=== PATIENT | female | born 1940 | race Caucasian/White ===

== ENCOUNTER 2024-03-11 22:41 | Inpatient (IN) | payer OTHER, BC ==
[2024-03-11 22:51] VITALS: BMI 28.3
[2024-03-12 01:19] LABS: HEMATOCRIT 35.7 % (32.4-45.2); MCH 32.1 pg (25.7-33.7); MCHC 33.6 g/dl (32.0-36.0); MEAN CELL VOLUME 95.7 fl (80-96); MEAN PLT VOLUME 8.4 fl (7.5-11.1); PLATELET COUNT 319 10^3/uL (134-434); RBC 3.73 M/mm3 (3.60-5.2); RDW 13.1 % (11.6-15.6); WHITE BLOOD COUNT 14.6 K/mm3 (4.0-10.0)
[2024-03-12 01:36] LABS: POTASSIUM 5.3 mmol/L (3.5-5.1)
[2024-03-12 01:37] LABS: CALCIUM 9.8 mg/dL (8.5-10.1)
[2024-03-12 01:38] LABS: ALBUMIN 3.7 g/dl (3.4-5.0); BLOOD UREA NITROGEN 39.9 mg/dL (7-18); MAGNESIUM 2.1 mg/dL (1.8-2.4)
[2024-03-12 01:40] LABS: INR 0.96 (0.83-1.09)
[2024-03-12 01:41] LABS: CREATININE 1.6 mg/dL (0.55-1.3)
[2024-03-12 01:43] LABS: ACTIVATED PTT 30.6 SECONDS (25.2-36.5); BILIRUBIN,TOTAL 0.9 mg/dL (0.2-1); TOT PROT 7.1 g/dl (6.4-8.2)
[2024-03-12] MEDS: SODIUM CHLORIDE 0.9% 500 ML INFUS.BAG IV ONE (03:20)
[2024-03-12] MEDS ORDERED: ACETAMINOPHEN 325 MG TABLET (FP) PO PRN (03:56)
[2024-03-12 04:35] LABS: PHOSPHOROUS 4.8 mg/dL (2.5-4.9)
[2024-03-12] MEDS: SODIUM CHLORIDE 0.45% 1,000 ML IV SCH (05:48)
[2024-03-12 06:01] LABS: URINE APPEARANCE CLEAR; URINE BILIRUBIN NEGATIVE (NEGATIVE); URINE COLOR YELLOW; URINE GLUCOSE (UA) NEGATIVE (NEGATIVE); URINE KETONE NEGATIVE (NEGATIVE); URINE LEUK ESTERASE NEGATIVE (NEGATIVE); URINE NITRITE NEGATIVE (NEGATIVE); URINE PROTEIN NEGATIVE (NEGATIVE); URINE UROBILINOGEN 0.2 mg/dL (0.2-1.0)
[2024-03-12 09:09] LABS: ANISOCYTOSIS 0; HELMET CELLS 0; HOWELL-JOLLY BODIES 0; MACROCYTOSIS 0; OVALOCYTE 0; ROULEAU 0; SICKELED CELLS 0; TARGET CELLS 0; TEAR DROP CELLS 0; TOXIC GRANULATION 0
[2024-03-12 09:30] LABS: BASO % 0.7 % (0-2.0); EOS % 0.3 % (0-4.5); HEMATOCRIT 33.8 % (32.4-45.2); HEMOGLOBIN 11.5 GM/dL (10.7-15.3); LYMPH % 7.6 % (8-40); MCH 32.6 pg (25.7-33.7); MCHC 34.1 g/dl (32.0-36.0); MEAN CELL VOLUME 95.7 fl (80-96); MEAN PLT VOLUME 8.1 fl (7.5-11.1); NEUT % 85.4 % (42.8-82.8); PLATELET COUNT 295 10^3/uL (134-434); RBC 3.53 M/mm3 (3.60-5.2); RDW 13.2 % (11.6-15.6); WHITE BLOOD COUNT 12.1 K/mm3 (4.0-10.0)
[2024-03-12 09:54] LABS: POTASSIUM 3.7 mmol/L (3.5-5.1)
[2024-03-12 09:56] LABS: BLOOD UREA NITROGEN 36.7 mg/dL (7-18); CALCIUM 9.3 mg/dL (8.5-10.1)
[2024-03-12 09:57] LABS: ALBUMIN 3.5 g/dl (3.4-5.0)
[2024-03-12 10:00] LABS: CREATININE 1.2 mg/dL (0.55-1.3)
[2024-03-12 10:01] LABS: BILIRUBIN,TOTAL 0.7 mg/dL (0.2-1); TOT PROT 6.6 g/dl (6.4-8.2)
[2024-03-12] MEDS ORDERED: LOSARTAN POTASSIUM 50 MG TABLET ONE (10:15)
[2024-03-12] MEDS: LOSARTAN POTASSIUM 50 MG TABLET PO SCH (10:27)
[2024-03-12] MEDS ORDERED: SELEGILINE HCL 5 MG PO SCH (11:30)
[2024-03-13 07:37] LABS: BASO % 0.9 % (0-2.0); EOS % 1.5 % (0-4.5); HEMATOCRIT 32.1 % (32.4-45.2); HEMOGLOBIN 11.3 GM/dL (10.7-15.3); LYMPH % 10.6 % (8-40); MCH 33.6 pg (25.7-33.7); MCHC 35.1 g/dl (32.0-36.0); MEAN CELL VOLUME 95.8 fl (80-96); MEAN PLT VOLUME 8.7 fl (7.5-11.1); MONO % 7.3 % (3.8-10.2); NEUT % 79.7 % (42.8-82.8); PLATELET COUNT 281 10^3/uL (134-434); RBC 3.35 M/mm3 (3.60-5.2); WHITE BLOOD COUNT 9.7 K/mm3 (4.0-10.0)
[2024-03-13 08:00] LABS: POTASSIUM 4.2 mmol/L (3.5-5.1)
[2024-03-13 08:01] LABS: CALCIUM 9.5 mg/dL (8.5-10.1)
[2024-03-13 08:02] LABS: BLOOD UREA NITROGEN 27.3 mg/dL (7-18)
[2024-03-13 08:05] LABS: CREATININE 0.9 mg/dL (0.55-1.3)
[2024-03-14] MEDS: DOCUSATE SODIUM 100 MG CAPSULE (FP) PO PRN (10:33)
[2024-03-14 10:55] VITALS: RESP 18
[2024-03-14 14:34] VITALS: BP 144/64; PULSE 64; TEMP 97.7
== END 2024-03-14 18:57 | disposition home health service (06) | DRG 57 ==
LOC: JER 22:41 → JERBED 03-12 03:32 → OBSVTOIN 03-12 12:54 → J4S 03-12 17:32
PROVIDERS: ADMIT Internal Medicine; ATTEND Family Medicine
DX: G20.A1 Parkinson's disease without dyskinesia, without mention of fluctuations (principal); N17.9 Acute kidney failure, unspecified; R55 Syncope and collapse; I10 Essential (primary) hypertension; E87.5 Hyperkalemia; E86.0 Dehydration; D72.829 Elevated white blood cell count, unspecified; I27.20 Pulmonary hypertension, unspecified
CPT/HCPCS: 0241U-QW; 36415; 70450-TC; 71045-TC-FY; 72125-TC; 80048; 80053; 81003; 82962; 83735; 84100; 84484; 85025; 85610; 85730; 86850; 86900; 86901; 87040; 87086; 93005; 93010; 93306-TC; 97116-GP; 97162-GP; 99285-25; G0378

== ENCOUNTER 2024-08-02 08:22 | Day surgery (SDC) | payer OTHER, BC ==
[2024-07-27 13:28] VITALS: BMI 28.9
[2024-08-02] MEDS ORDERED: LIDOCAINE 1% P/F 10 MG/ML VIAL ONE (08:50)
[2024-08-02] MEDS ORDERED: NEO/POLYMYX B SULF/DEXAMETH OPHTHALMIC 5ML BOTTLE ONE (08:50)
[2024-08-02] MEDS ORDERED: BSS (NA/CA/MG/K) BALANCED SALT SOLUTION OPHTH SOLN 15 ML BOTTLE ONE (08:50)
[2024-08-02] MEDS: CIPROFLOXACIN 0.3% EYE DROPS 5 ML BOTTLE ONE (08:50)
[2024-08-02] MEDS: TROPICAMIDE 1% OPHTH SOLN 15 ML BOTTLE ONE (08:50)
[2024-08-02] MEDS: CYCLOPENTOLATE 2% OPHTH SOLN 2 ML BOTTLE ONE (08:50)
[2024-08-02] MEDS ORDERED: EPINEPHrine/PF 1 MG/1 ML (1:1,000) AMPULE ONE (08:50)
[2024-08-02] MEDS ORDERED: CARBACHOL 0.01% INTRA-OCULAR 1.5 ML VIAL ONE (08:50)
[2024-08-02] MEDS: PHENYLEPHRINE 2.5% OPTHALMIC DROP 2ML BOTTLE ONE (08:50)
[2024-08-02] MEDS ORDERED: TETRACAINE 0.5% OPHTH SOLN 2 ML BOTTLE ONE (08:50)
[2024-08-02] MEDS ORDERED: MIDAZOLAM HCL 2 MG/2 ML SINGLE DOSE VIAL ONE (10:34)
[2024-08-02 11:51] VITALS: RESP 16; TEMP 97.3
[2024-08-02 11:52] VITALS: BP 141/68; PULSE 67
== END 2024-08-02 12:00 | disposition home or self-care (01) ==
LOC: FASU 08:22
PROVIDERS: ATTEND Ophthalmology
PROC: 08RJ3JZ Replacement of Right Lens with Synthetic Substitute, Percutaneous Approach (ICD-10-PCS; principal; 2024-08-02 10:39)
DX: H26.8 Other specified cataract (principal); H21.541 Posterior synechiae (iris), right eye
CPT/HCPCS: 66982; V2632